=== PATIENT | female | born 1970 | race Caucasian/White ===

== ENCOUNTER 2018-07-09 07:50 | Emergency (ER) | payer BC ==
[2018-07-09] MEDS: Aspirin 81 MG Tab.Chew PO ONE (08:00)
[2018-07-09] MEDS: Sodium Chloride 0.9% 5 ML Syringe FLUSH PRN (08:07)
[2018-07-09] MEDS: Ondansetron 4 MG/2 ML SDV IVPUSH ONE (08:25)
--- NOTE | 2018-07-09 08:27 | EDM.PDOC ---
ED HPI GENERAL MEDICAL PROBLEM - General Chief Complaint: Chest Pain Stated Complaint: CHEST PAIN Time Seen by Provider: 07/09/18 08:19 Source of Information: Reports: Patient History Limitations: Reports: No Limitations - History of Present Illness INITIAL COMMENTS - FREE TEXT/NARRATIVE: Patient is a 47-year-old female who presents to the emergency department via private vehicle this morning with a complaint of chest pain. Pain is described as pressure, constant, and located at left side of center chest. 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 Patient took nitroglycerin sublingual, without relief. She then took another, without relief. At that point she was assessed by a care home nurse, and took a third nitroglycerin. This again did not relieve the discomfort, so a coworker took her to the hospital. Patient states that she underwent chemical stress test on Saturday. Results unknown at this juncture. Patient has been having these symptoms intermittently for last couple weeks, and therefore stress test was ordered. Patient also states that she has intermittent shortness of breath, nausea, and diaphoresis. Patient denies fever, headache, lower extremity edema, abdominal pain, or out of country travel. Onset: Sudden Duration: Hour(s): Location: Reports: Chest Quality: Reports: Pressure Severity: Mild Improves with: Reports: None Worsens with: Reports: None Context: Reports: Other (At rest) Associated Symptoms: Reports: Chest Pain, Diaphoresis, Shortness of Breath Treatments RE ETCHER: Reports: Nitroglycerin (3) Left Chest Pain Score (Numeric/FACES): 5 - Related Data Allergies Allergy/AdvReac Type Severity Reaction Status Date / Time No Known Drug Allergies Allergy Cannot Verified 07/09/18 08:29 Remember Home Meds: Home Meds Citalopram [Citalopram HBr] 20 mg PO DAILY 07/09/18 [History] Dicyclomine [Bentyl] 20 mg PO TID 07/09/18 [History] Lisinopril [Zestril] 20 mg PO DAILY 07/09/18 [History] Omeprazole 20 mg PO TID 07/09/18 [History] guaiFENesin/Codeine Phosphate [Cheratussin AC Syrup] 10 ml PO Q4H PRN 07/09/18 [ History] ED ROS GENERAL - Review of Systems Review Of Systems: ROS reveals no pertinent complaints other than HPI. Constitutional: Reports: No Symptoms HEENT: Reports: No Symptoms Respiratory: Reports: Shortness of Breath Cardiovascular: Reports: Chest Pain Endocrine: Reports: No Symptoms GI/Abdominal: Reports: No Symptoms : Reports: No Symptoms Musculoskeletal: Reports: No Symptoms Skin: Reports: No Symptoms Neurological: Reports: No Symptoms Psychiatric: Reports: Anxiety Hematologic/Lymphatic: Reports: No Symptoms Immunologic: Reports: No Symptoms ED EXAM, GENERAL - Physical Exam Exam: See Below Exam Limited By: No Limitations General Appearance: Alert, WD/WN, No Apparent Distress Eye Exam: Bilateral Eye: Normal Inspection Nose: Normal Inspection, Normal Mucosa, No Blood Throat/Mouth: Normal Inspection, Normal Lips, Normal Oropharynx, Normal Voice, No Airway Compromise Head: Atraumatic, Normocephalic Neck: Normal Inspection, Supple, Non-Tender Respiratory/Chest: No Respiratory Distress, Rales (End inspiratory) Cardiovascular: Regular Rate, Rhythm, No Murmur, No Rub GI/Abdominal: Normal Bowel Sounds, Soft, Non-Tender, No Organomegaly, No Distention, No Abnormal Bruit, No Mass Back Exam: Normal Inspection. No: CVA Tenderness (L), CVA Tenderness (R) Extremities: Normal Inspection, Non-Tender, No Pedal Edema Neurological: Alert, Oriented, CN II-XII Intact, Normal Cognition Psychiatric: Anxious Skin Exam: Warm, Dry, Intact, Normal Color, No Rash Lymphatic: No Adenopathy EKG INTERPRETATION EKG Date: 07/09/18 Time: 08:10 Rhythm: NSR Rate (Beats/Min): 69 [place]: Normal P-Wave: Present QRS: Normal ST-T: Normal QT: Normal Comparison: NA - No Prior EKG Course - Vital Signs Last Recorded V/S: Last Vital Signs Temp 96.9 F 07/09/18 08:14 Pulse 62 07/09/18 09:12 Resp 12 07/09/18 09:12 BP 142/80 H 07/09/18 09:12 Pulse Ox 97 07/09/18 09:12 - Orders/Labs/Meds Orders: Active Orders 24 hr Category Date Time Status EKG Documentation Completion [RC] ASDIRECTED Care 07/09/18 08:21 Ordered Chest 1V Frontal [CR] Stat Exams 07/09/18 08:20 Ordered Sodium Chloride 0.9% [Syrex Flush] Med 07/09/18 08:57 Active 5 ml FLUSH Q8HR PRN Saline Lock Insert [OM.PC] Routine Oth 07/09/18 08:37 Ordered EKG 12 Lead [EK] Routine Ther 07/09/18 08:20 Ordered Medication Orders Sodium Chloride (Syrex Flush) 5 ml FLUSH Q8HR PRN PRN Reason: Keep Vein Open Labs: Laboratory Tests 07/09/18 07/09/18 07/09/18 Range/Units 08:00 08:00 08:00 WBC 8.09 (5.00-10.00) 10^3/uL RBC 4.30 (3.80-5.50) 10^6/uL Hgb 12.9 (12.0-16.0) g/dL Hct 38.7 (37.0-47.0) % MCV 90.0 (82.0-92.0) fL MCH 30.0 (27.0-31.0) pg MCHC 33.3 (32.0-36.0) g/dL RDW 14.4 (11.5-14.5) % Plt Count 374 (150-400) 10^3/uL MPV 9.5 (7.4-10.4) fL Immature Gran % (Auto) 0.5 (0.0-5.0) % Neut % (Auto) 49.2 L (50.0-70.0) % Lymph % (Auto) 39.7 (20.0-40.0) % [place] % (Auto) 7.2 (2.0-8.0) % Eos % (Auto) 3.2 H (1.0-3.0) % Baso % (Auto) 0.2 (0.0-1.0) % Immature Gran # (Auto) 0.04 (0.00-0.50) 10^3/uL Neut # (Auto) 3.98 (2.50-7.00) 10^3/uL Lymph # (Auto) 3.21 (1.00-4.00) 10^3/uL [place] # (Auto) 0.58 (0.10-0.80) 10^3/uL Eos # (Auto) 0.26 (0.10-0.30) 10^3/uL Baso # (Auto) 0.02 (0.00-0.10) 10^3/uL Atypical Lymphocytes Not seen PT 8.7 L (8.9-11.4) SEC INR 0.9 (0.9-1.1) APTT 25.0 (20.8-31.2) SEC Sodium 142 (136-145) mmol/L Potassium 4.0 (3.3-5.3) mmol/L Chloride 103 (98-115) mmol/L Carbon Dioxide 27.8 (21.0-32.0) mmol/L Anion Gap 15.2 H (5-15) mmol/L BUN 10 (6-25) mg/dL Creatinine 0.50 L (0.51-1.17) mg/dL Est Cr Clr Drug Dosing 135.26 mL/min Estimated GFR (MDRD) > 60 mL/min Glucose 91 mg/dL Calcium 8.3 L (8.7-10.3) mg/dL Total Bilirubin 0.2 (0.2-1.0) mg/dL AST 17 (15-37) U/L ALT 30 (12-78) U/L Alkaline Phosphatase 113 (46-116) IU/L Troponin I 0.04 (0.00-0.070) ng/mL Total Protein 7.3 (6.4-8.2) g/dL Albumin 3.64 (3.00-4.80) g/dL Lipase 167 (73-393) U/L Meds: Medications Generic Name Dose Route Start Last Admin Trade Name Freq PRN Reason Stop Dose Admin Sodium Chloride 5 ml 07/09/18 08:57 Syrex Flush FLUSH Q8HR PRN Keep Vein Open Discontinued Medications Generic Name Dose Route Start Last Admin Trade Name Freq PRN Reason Stop Dose Admin Aspirin 324 mg 07/09/18 08:00 07/09/18 08:00 Aspirin PO 07/09/18 08:01 324 mg ONETIME ONE Administration Ondansetron HCl Confirm 07/09/18 08:16 07/09/18 08:49 Zofran Administered 07/09/18 08:17 Not Given Dose 4 mg .ROUTE .STK-MED ONE Ondansetron HCl 4 mg 07/09/18 08:00 07/09/18 08:25 Zofran IVPUSH 07/09/18 08:01 4 mg ONETIME ONE Administration Sodium Chloride 5 ml 07/09/18 08:37 07/09/18 08:07 Syrex Flush FLUSH 5 ml Q8HR PRN Administration Keep Vein Open - Radiology Interpretation Free Text/Narrative:: Chest x-ray shows no acute cardiopulmonary process - Re-Assessments/Exams Free Text/Narrative Re-Assessment/Exam: 07/09/18 09:24 Patient afebrile, nontoxic appearing, vital signs stable, chest pain, resolved. Discussed case in depth with Ranjith Carpenter [facility] Provider. He was able to access the stress test performed on Saturday. Results were negative per cardiology. Based on normal EKG, cardiac enzymes, and recent stress test, Ranjith decided patient could be seen by primary care doctor in 1-2 days. Departure - Departure Time of Disposition: 09:26 Disposition: Home, Self-Care 01 Condition: Good Clinical Impression: Atypical chest pain, Anxiety Instructions: Panic Attack, [id number], Nonspecific Chest Pain, [id number] Referrals: PCP,Not In Area [Primary Care Provider] - Forms: ED Department Discharge Additional Instructions: Follow-up with your primary care provider in next 1-2 days. Return to the emergency department sooner if symptoms continue or worsen. - My Orders Last 24 Hours: My Active Orders 07/09/18 08:20 Chest 1V Frontal [CR] Stat EKG 12 Lead [EK] Routine 07/09/18 08:21 EKG Documentation Completion [RC] ASDIRECTED 07/09/18 08:37 Saline Lock Insert [OM.PC] Routine 07/09/18 08:57 Sodium Chloride 0.9% [Syrex Flush] 5 ml FLUSH Q8HR PRN - Assessment/Plan Last 24 Hours: My Active Orders 07/09/18 08:20 Chest 1V Frontal [CR] Stat EKG 12 Lead [EK] Routine 07/09/18 08:21 EKG Documentation Completion [RC] ASDIRECTED 07/09/18 08:37 Saline Lock Insert [OM.PC] Routine 07/09/18 08:57 Sodium Chloride 0.9% [Syrex Flush] 5 ml FLUSH Q8HR PRN Assessment:: Chest pain, anxiety Plan: Follow-up with PCP in next 1-2 days
[2018-07-09 08:48] LABS: ANION GAP 15.2 mmol/L (5-15); CHLORIDE,CL 103 mmol/L (98-115); SODIUM,NA 142 mmol/L (136-145)
[2018-07-09] MEDS: Ondansetron 4 MG/2 ML SDV ONE (08:49)
[2018-07-09] MEDS ORDERED: Sodium Chloride 0.9% 5 ML Syringe FLUSH PRN (08:57)
[2018-07-09 09:25] VITALS: BP 142/80
== END 2018-07-09 09:30 | disposition home or self-care (01) ==
LOC: KA.ED 07:50
DX: R07.89 Other chest pain (principal); F41.9 Anxiety disorder, unspecified; Z79.899 Other long term (current) drug therapy
CPT/HCPCS: 71045; 80053; 83690; 84484; 85025; 85610; 85730; 96374; 99285; A9270-GY; J2405